=== PATIENT | female | born 1940 | race Caucasian/White ===

== ENCOUNTER → 2019-10-24 | Outpatient (CLI) | payer MEDICARE, BC | LOC: M.RAD 15:32 | DX: J98.4 Other disorders of lung (principal); I10 Essential (primary) hypertension; F32.9 Major depressive disorder, single episode, unspecified; F32.1 Major depressive disorder, single episode, moderate ==

== ENCOUNTER → 2019-11-03 | Outpatient (CLI) | payer MEDICARE, BC | LOC: M.MRI 10-31 14:02 | DX: I67.82 Cerebral ischemia (principal); F32.9 Major depressive disorder, single episode, unspecified; N30.00 Acute cystitis without hematuria; R26.9 Unspecified abnormalities of gait and mobility; I10 Essential (primary) hypertension; E04.1 Nontoxic single thyroid nodule; J98.4 Other disorders of lung ==

== ENCOUNTER → 2019-11-21 | Outpatient (CLI) | payer MEDICARE, BC | LOC: M.RAD 15:04 | PROVIDERS: ATTEND Internal Medicine | DX: M79.89 Other specified soft tissue disorders (principal); M25.572 Pain in left ankle and joints of left foot ==

== ENCOUNTER 2020-10-11 14:03 | Inpatient (IN) | payer MEDICARE, BC ==
[~2020-10-11] VITALS: Ht 167.6 cm; Wt 69.4 kg
--- NOTE | ~2020-10-11 | EMS ---
[address] [address] EMS Patient Care Report Name: WILBUR KHOURY Room: [address] [place]#: [id number] Admission: 10/11/20 Attend Phys: Dom Peters Discharge: Date of : 40 Report #: [id number] THIS REPORT FOR: //name// Report Transmitted: 10/11/2020 17:03 EMS Care Summary [place] Incident [id number] @ 10/11/2020 13:16 Incident Location [address] [place] [address] Patient WILBUR KHOURY Female, 79 Years 1940 Patient Address [address] [place] [address] Patient History Personal history of peptic ulcer disease,Hypertension (HTN), Patient Allergies , Patient Medications Tylenol, Acetaminophen / Oxycodone, Chief Complaint Abdominal pain/discomfort Disposition Transported No Lights/[place] Reason Unknown Problem/Person Down Transported To [facility] Narrative [facility] was dispatched to the aforementioned address for a reported pt with abdominal pain. Upon arrival, the pt was walking down the stairs under her own power with members from the [employer] ([employer]). The pt walked out to the cot where she was secured utilizing the cot seatbelts. The cot was [place] [id number] EMS Patient Care Report Name: WILBUR KHOURY Room: [address] BenitoRadha#: [id number] Admission: 10/11/20 Attend Phys: Dom Peters Discharge: Date of : 40 Report #: [id number] loaded into the unit without incident. [employer] and the pt's home health care worker relayed that the pt had "not been feeling well" for going on 5 days. The Pt reported she had not been able to eat or drink for 5 days and that she had not moved her bowels for 2 days. The pt stated she had all over abdominal pain rated 9 on a scale from 0-10. The pt stated the pain is constant and she cannot find relief. The pt denies worsening of pain to palpation. The pt also denies radiation of pain. While in the unit, the pt's history, vitals, and 4 and 12-Lead EKGs were obtained as recorded above. IV access was attempted but was unsuccessful. Oral Zofran was administered as recorded above. The pt denied relief with the medication. The pt's signature was obtained on paper indicating consent for transport, please see attached. The pt was transported non-emergency to [facility] Emergency Department Room 6. Pt care and belongings were transferred to [facility] staff. The pt was transferred from the cot to the hospital bed utilizing the blanket that was already beneath her, all these things occurring without incident. The pt's black bag and two patterned brown bags were left on the counter in the room. The pt's information sheet was placed in the center compartment of the black bag. The pt's blue cane was left leaning on the chair next to the bed. [facility] in-service and available at the time stated above. RMontes Initial Vitals @13:53Pain: 02/22, @13:25Pain: 02/22, @13:29SpO2: 97, @13:30SpO2: 98, @13:30SpO2: 97, @13:45SpO2: 99, @13:31 @13:32 @13:33 @13:29P: 112,R: 16, @13:30P: 111,R: 16,BP: 169/98, @13:45P: 102,R: 16,BP: 160/92, @13:29GCS: 15, @13:30GCS: 15, @13:45GCS: 15, @13:41Glucose: 140, Assessments @13:25MENTAL:SKIN:HEENT:LUNG SOUNDS:ABDOMEN:PELVIS//GI:EXTREMITIES:PULSE:NEURO: Impression [place] [address] EMS Patient Care Report Name: WILBUR KHOURY Room: [address] Juan R Verdin#: [id number] Admission: 10/11/20 Attend Phys: Dom Peters Discharge: Date of : 40 Report #: [id number] @13:40Ondansetron - 8.000 Milligrams (mg) - OralResponse: Unchanged@13:38 cc () Site: Forearm-RightResponse: UnchangedFailed@13:3112-Lead ECGResponse: UnchangedSucceeded@13:323-Lead ECGResponse: UnchangedSucceeded@13:3312-Lead ECGResponse: UnchangedSucceeded Timeline 13:16,Call Received 13:16,Dispatch Notified 13:16,Psap Call 13:16,Dispatched 13:17,En Route 13:23,On Scene 13:25,At Patient 13:25,BP: / M,PULSE: ,RR: R,SPO2: Ox,ETCO2: ,BG: ,PAIN: 9,GCS: , 13:29,BP: / M,PULSE: ,RR: R,SPO2: 97 Ox,ETCO2: ,BG: ,PAIN: ,GCS: , 13:29,BP: / M,PULSE: 112,RR: 16 R,SPO2: Ox,ETCO2: ,BG: ,PAIN: ,GCS: , 13:29,BP: / M,PULSE: ,RR: R,SPO2: Ox,ETCO2: ,BG: ,PAIN: ,GCS: 15, 13:30,BP: / M,PULSE: ,RR: R,SPO2: 98 Ox,ETCO2: ,BG: ,PAIN: ,GCS: , 13:30,BP: / M,PULSE: ,RR: R,SPO2: 97 Ox,ETCO2: ,BG: ,PAIN: ,GCS: , 13:30,BP: 169/98 M,PULSE: 111,RR: 16 R,SPO2: Ox,ETCO2: ,BG: ,PAIN: ,GCS: , 13:30,BP: / M,PULSE: ,RR: R,SPO2: Ox,ETCO2: ,BG: ,PAIN: ,GCS: 15, 13:31,12-Lead ECG,Response: UnchangedSucceeded, 13:31,BP: / M,PULSE: ,RR: R,SPO2: Ox,ETCO2: ,BG: ,PAIN: ,GCS: , 13:32,3-Lead ECG,Response: UnchangedSucceeded, 13:32,BP: / M,PULSE: ,RR: R,SPO2: Ox,ETCO2: ,BG: ,PAIN: ,GCS: , 13:33,12-Lead ECG,Response: UnchangedSucceeded, 13:33,BP: / M,PULSE: ,RR: R,SPO2: Ox,ETCO2: ,BG: ,PAIN: ,GCS: , 13:38, cc Site: Forearm-Right,Response: UnchangedFailed, 13:40,Ondansetron - 8.000 Milligrams (mg) - Oral,Response: Unchanged 13:41,BP: / M,PULSE: ,RR: R,SPO2: Ox,ETCO2: ,B,PAIN: ,GCS: , 13:43,Depart Scene 13:45,BP: / M,PULSE: ,RR: R,SPO2: 99 Ox,ETCO2: ,BG: ,PAIN: ,GCS: , 13:45,BP: 160/92 M,PULSE: 102,RR: 16 R,SPO2: Ox,ETCO2: ,BG: ,PAIN: ,GCS: , 13:45,BP: / M,PULSE: ,RR: R,SPO2: Ox,ETCO2: ,BG: ,PAIN: ,GCS: 15, 13:53,BP: / M,PULSE: ,RR: R,SPO2: Ox,ETCO2: ,BG: ,PAIN: 9,GCS: , 13:59,At Destination 14:15,Call Closed Disclaimer v1.1 Copyright 2020 [email or web address] This EMS Care Summary contains data elements from the applicable legal record (which may be displayed differently). It is designed to provide pertinent information for the following purposes: continuity of care, clinical quality, and state data reporting. The complete legal record is available to ED staff and administrators of the receiving hospital in [employer] Patient Tracker. All data is provided "as is."
[2020-10-11 14:14] VITALS: BP 160/83
[2020-10-11 14:40] LABS: ABSOLUTE BASOPHILS 0.1 thou/uL (0.0-0.2); ABSOLUTE LYMPHOCYTES 1.4 thou/uL (0.8-5.3); ABSOLUTE NEUTROPHILS 6.4 thou/uL (1.6-8.1); BASOPHILS 0.6 %; EOSINOPHILS 0.1 %; HEMATOCRIT 30.9 % (37.0-47.0); HEMOGLOBIN 9.8 gm/dL (12.0-15.0); LYMPHOCYTES 15.5 %; MCH 25.7 pg (26.0-34.0); MCHC 31.7 g/dL (28.0-37.0); MCV 81.2 fL (80.0-100.0); MONOCYTES 11.6 %; MPV 6.6 fl. (7.2-11.1); NUCLEATED RBCS 0 /100WBC; PLATELET COUNT* 533 thou/uL (150-400); POLYS 72.2 %; RBC 3.81 mil/uL (4.20-5.00); RDW-CV 20.7 % (10.5-14.5); WBC 8.8 thou/uL (4.0-11.0)
[2020-10-11 14:50] LABS: CALCIUM 9.7 mg/dL (8.5-10.1); CREATININE 0.7 mg/dL (0.6-1.3); POTASSIUM 3.5 mmol/L (3.5-5.1)
[2020-10-11 14:54] LABS: TOTAL BILIRUBIN 0.5 mg/dL (<0.1-1.0)
[2020-10-11 15:10] LABS: PLATELET ESTIMATE INCREASED
[2020-10-11 15:11] LABS: HYPOCHROMASIA 1+
[2020-10-11 15:14] LABS: ANISOCYTOSIS 1+
--- NOTE | 2020-10-11 15:52 | EKG ---
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
[2020-10-11 17:20] LABS: URINE BILIRUBIN NEGATIVE (Negative); URINE BLOOD NEGATIVE (Negative); URINE CLARITY CLEAR; URINE COLOR YELLOW; URINE GLUCOSE-RANDOM NEGATIVE (Negative); URINE KETONES 1+ (Negative); URINE LEUKOCYTES-REFLEX NEGATIVE (Negative); URINE NITRITE-REFLEX NEGATIVE (Negative); URINE PROTEIN NEGATIVE (Negative); URINE SPECIFIC GRAVITY <= 1.005 (1.005-1.030); URINE UROBILINOGEN 0.2 E.U./dl (0.2-1.0)
[2020-10-11 18:20] VITALS: BP 140/65
[2020-10-11 20:00] VITALS: BP 109/64
[2020-10-11] MEDS ORDERED: ENALAPRIL MALEA20 MG PO (22:55)
[2020-10-12] VITALS: BP 143/73
[2020-10-12 04:00] VITALS: BP 110/53
[2020-10-12 04:30] LABS: ABSOLUTE BASOPHILS 0.1 thou/uL (0.0-0.2); ABSOLUTE LYMPHOCYTES 1.3 thou/uL (0.8-5.3); ABSOLUTE MONOCYTES 0.6 thou/uL (0.0-1.2); ABSOLUTE NEUTROPHILS 3.8 thou/uL (1.6-8.1); EOSINOPHILS 0.3 %; HEMATOCRIT 25.4 % (37.0-47.0); HEMOGLOBIN 7.9 gm/dL (12.0-15.0); LYMPHOCYTES 22.3 %; MCH 25.5 pg (26.0-34.0); MCV 82.2 fL (80.0-100.0); MPV 6.9 fl. (7.2-11.1); NUCLEATED RBCS 0 /100WBC; POLYS 65.4 %; RBC 3.09 mil/uL (4.20-5.00); RDW-CV 20.1 % (10.5-14.5); WBC 5.8 thou/uL (4.0-11.0)
[2020-10-12 04:45] LABS: ALKALINE PHOSPHATASE 48 U/L (46-116); ANION GAP 10 mmol/L (7-16); BUN 7 mg/dL (7-18); CHLORIDE 104 mmol/L (98-107); CO2 24 mmol/L (21-32); CREATININE 0.7 mg/dL (0.6-1.3); GLUCOSE 87 mg/dL (70-99); POTASSIUM 3.2 mmol/L (3.5-5.1); SGOT 11 U/L (15-37); SGPT 11 U/L (30-65); SODIUM 138 mmol/L (136-145); TOTAL BILIRUBIN 0.3 mg/dL (<0.1-1.0); TOTAL PROTEIN 5.5 g/dL (6.4-8.2); TROPONIN-I LEVEL <0.06 ng/mL (<0.06)
[2020-10-12 04:48] LABS: PLATELET COUNT* 381 thou/uL (150-400)
[2020-10-12 07:57] VITALS: BP 153/76
[2020-10-12 08:21] LABS: HYPOCHROMASIA 3+; MICROCYTES 1+; PLATELET ESTIMATE ADEQUATE
[2020-10-12 08:22] LABS: ANISOCYTOSIS 1+
[2020-10-12 11:31] VITALS: BP 122/61
[2020-10-12 20:00] VITALS: BP 99/51
[2020-10-13 00:17] VITALS: BP 98/50
[2020-10-13 04:14] VITALS: BP 123/52
[2020-10-13 08:00] VITALS: BP 133/68
[2020-10-13 11:34] LABS: ABSOLUTE BASOPHILS 0.1 thou/uL (0.0-0.2); ABSOLUTE EOSINOPHILS 0.1 thou/uL (0.0-0.7); ABSOLUTE LYMPHOCYTES 0.8 thou/uL (0.8-5.3); ABSOLUTE MONOCYTES 0.5 thou/uL (0.0-1.2); ABSOLUTE NEUTROPHILS 3.4 thou/uL (1.6-8.1); BASOPHILS 1.2 %; EOSINOPHILS 2.3 %; HEMATOCRIT 24.1 % (37.0-47.0); HEMOGLOBIN 7.1 gm/dL (12.0-15.0); MCH 25.3 pg (26.0-34.0); MCHC 29.4 g/dL (28.0-37.0); MCV 86.1 fL (80.0-100.0); MONOCYTES 9.9 %; MPV 6.8 fl. (7.2-11.1); NUCLEATED RBCS 0 /100WBC; PLATELET COUNT* 356 thou/uL (150-400); POLYS 70.6 %; RDW-CV 21.2 % (10.5-14.5); WBC 4.8 thou/uL (4.0-11.0)
[2020-10-13 11:45] LABS: MAGNESIUM 1.9 mg/dL (1.8-2.4); PHOSPHORUS* 2.7 mg/dL (2.5-4.9)
[2020-10-13 11:56] LABS: CALCIUM 8.2 mg/dL (8.5-10.1); CREATININE 0.8 mg/dL (0.6-1.3); POTASSIUM 3.7 mmol/L (3.5-5.1)
[2020-10-13 12:00] VITALS: BP 127/62
[2020-10-13 16:02] VITALS: BP 197/42
[2020-10-13 17:22] VITALS: BP 128/51
[2020-10-14 00:21] VITALS: BP 106/43
[2020-10-14 04:54] VITALS: BP 127/49
[2020-10-14 08:00] VITALS: BP 135/58
[2020-10-14] MEDS ORDERED: GABAPENTIN 100100 MG PO (09:55)
[2020-10-14] MEDS ORDERED: CARAFATE 1 GM TA1 G1 PO (09:55)
[2020-10-14] MEDS ORDERED: ONDANSETRON HCL4 M2 PO (09:55)
[2020-10-14] MEDS ORDERED: PROTONIX40 M2 PO (09:55)
[2020-10-14 12:00] VITALS: BP 114/60
[2020-10-14 12:59] VITALS: BP 135/58
[2020-10-14 13:35] LABS: ABSOLUTE EOSINOPHILS 0.2 thou/uL (0.0-0.7); ABSOLUTE LYMPHOCYTES 0.9 thou/uL (0.8-5.3); ABSOLUTE MONOCYTES 0.6 thou/uL (0.0-1.2); ABSOLUTE NEUTROPHILS 3.9 thou/uL (1.6-8.1); BASOPHILS 0.7 %; EOSINOPHILS 3.6 %; HEMATOCRIT 25.2 % (37.0-47.0); HEMOGLOBIN 7.8 gm/dL (12.0-15.0); LYMPHOCYTES 15.9 %; MCH 25.4 pg (26.0-34.0); MCV 81.8 fL (80.0-100.0); MONOCYTES 10.5 %; MPV 7.3 fl. (7.2-11.1); NUCLEATED RBCS 0 /100WBC; POLYS 69.3 %; RBC 3.08 mil/uL (4.20-5.00); RDW-CV 20.8 % (10.5-14.5); WBC 5.6 thou/uL (4.0-11.0)
[2020-10-14 13:39] LABS: PLATELET COUNT* 250 thou/uL (150-400)
[2020-10-14 13:55] LABS: ALBUMIN 2.9 g/dL (3.4-5.0); CALCIUM 8.7 mg/dL (8.5-10.1); CREATININE 0.6 mg/dL (0.6-1.3); POTASSIUM 3.9 mmol/L (3.5-5.1); TOTAL BILIRUBIN 0.2 mg/dL (<0.1-1.0); TOTAL PROTEIN 5.4 g/dL (6.4-8.2)
[2020-10-14 14:09] LABS: HYPOCHROMASIA 3+; PLATELET ESTIMATE ADEQUATE
[2020-10-14 14:10] LABS: MACROCYTES Occasional
[2020-10-14 14:11] LABS: ANISOCYTOSIS Occasional; MICROCYTES Occasional
--- NOTE | 2020-10-15 07:32 | CON ---
[address] [address] CONSULTATION Name: WILBUR KHOURY Room: [address] IN M.R.#: [id number] Admission: 10/12/20 Attend Phys: Dom Peters Discharge: 10/14/20 Date of : 40 Report #: [id number] THIS REPORT FOR: cc: Nils Remy MD, David L. MD Bodenstab, Johnna L. FNP ~ DOC #: [id number] cc: MD Evonne Morley FNP DATE OF CONSULTATION: 10/12/2020 PRIMARY CARE PHYSICIAN: Nils Remy MD Please note at the time of this dictation, the patient was seen and physically examined by myself. REASON FOR CONSULTATION: Nausea, vomiting and abdominal pain. HISTORY OF PRESENT ILLNESS: This 79-year-old female who is under the care of a caregiver that sees her on a daily basis. Apparently, the patient is a very poor historian, that she has complained of left-sided abdominal discomfort with some nausea and vomiting. She states eating makes it worse and she had not eaten for several days. She states that 3 weeks ago, she had some blood in her urine and that has since resolved. In talking with the patient, she is unclear if she had an EGD. She was in [facility] she states back in May for a bleeding ulcer, likely she had an upper scope done. We will need ____ to get those records from her. Apparently, her appetite has been off and on and she has been having bowel movements regularly. No noted weight loss has been noted. The patient does complain at the time at the bedside that she has a lot of anxiety and was wanting something for that. Attempt was made to talk to, Dayanna, the granddaughter, to see if she knew what type of care she received at [facility] and that we will just have to wait on records. Left a message for her to call us back. Apparently, the patient had an extensive workup at [place] as well 4 years ago that showed that she had ulcers, otherwise no other reason for her symptoms. It is also noted from the granddaughter that she has had suicide attempts via benzo overdose in the past. ALLERGIES: SULFA, CODEINE. MEDICATIONS FROM HOME: Gabapentin, ferrous sulfate, oxycodone, pantoprazole, and enalapril. PAST MEDICAL HISTORY: Significant for anxiety, peptic ulcer disease, hypertension and possible [place] [address] CONSULTATION Name: WILBUR KHOURY Room: [address] IN M.R.#: [id number] Admission: 10/12/20 Attend Phys: Dom Peters Discharge: 10/14/20 Date of : 40 Report #: [id number] PAST SURGICAL HISTORY: She has had bilateral breast implants. FAMILY HISTORY: Noncontributory. SOCIAL HISTORY: Denies any alcohol, tobacco, or illegal drug use. REVIEW OF SYSTEMS: Twelve point review of systems is essentially negative except what is mentioned in the HPI. PHYSICAL EXAMINATION: VITAL SIGNS: Temperature 36.4, pulse 66, respirations 17, blood pressure 110/53. HEART: Regular rate and rhythm. LUNGS: Diminished, but clear. ABDOMEN: Soft, positive bowel sounds in all four quadrants with tenderness noted more in the upper abdomen bilaterally. LABORATORY DATA: Hemoglobin on admission was 9.8, she is 7.9; white count is 5.8; platelets 381. Potassium was 3.2, BUN was normal at 12 with a GFR of 81. DIAGNOSTIC DATA: CT scan of the abdomen and pelvis shows mild fatty liver, gallbladder and spleen are normal, mildly dilated duodenum along the first and second portions with mucosal enhancement. There is also edema and mild fluid along the margins near the pancreatic head. There is luminal narrowing at the junction of the duodenal bulb and pylorus. No pancreatic inflammation is seen. Small hiatal hernia. IMPRESSION: 1. Abdominal pain. 2. Nausea and vomiting. 3. Abnormal CT with dilated duodenum and narrowing in the luminal wall. 4. History of peptic ulcer disease and nonsteroidal anti-inflammatory drug use in the past, no longer doing that. 5. Anemia. She states history of a melanotic stool in the remote past. 6. Anxiety. 7. History of suicide attempts. PLAN: 1. Obtain records from [facility]. 2. The patient is refusing EGD this a.m. 3. Clear liquid diet. 4. Called to speak with granddaughter, Dayanna, but had to leave a message to call back and instructed to talk to Iris. [address] [address] CONSULTATION Name: WILBUR KHOURY Room: M.218-P DIS IN M.R.#: [id number] Admission: 10/12/20 Attend Phys: Dom Peters Discharge: 10/14/20 Date of : 40 Report #: [id number] 5. Further recommendations to be made once the above has been noted. Thank you for allowing us to participate in this patient's care. Please do not hesitate to call with any questions regarding this consult. MD MAE Rees/ERROL <ELECTRONICALLY SIGNED> By: GREGORY Carranza 10/15/20 0732 0757 2120GREGORY Carranza /shaniqua
== END 2020-10-14 15:47 | disposition home or self-care (01) | DRG 380 ==
LOC: M.ERS 14:03 → M.TBA-ER 16:09 → M.2W 18:21
PROVIDERS: Emergency Medicine Emergency Medical Services; ADMIT Internal Medicine; ATTEND Internal Medicine
DX: K31.1 Adult hypertrophic pyloric stenosis (principal); G93.41 Metabolic encephalopathy; E44.1 Mild protein-calorie malnutrition; F41.9 Anxiety disorder, unspecified; I10 Essential (primary) hypertension; K52.9 Noninfective gastroenteritis and colitis, unspecified; D47.3 Essential (hemorrhagic) thrombocythemia; D64.9 Anemia, unspecified; F03.90 Unspecified dementia, unspecified severity, without behavioral disturbance, psychotic disturbance, mood disturbance, and anxiety; Z20.822 Contact with and (suspected) exposure to COVID-19; Z88.2 Allergy status to sulfonamides; Z68.24 Body mass index [BMI] 24.0-24.9, adult; Z88.5 Allergy status to narcotic agent; Z87.11 Personal history of peptic ulcer disease; Z86.73 Personal history of transient ischemic attack (TIA), and cerebral infarction without residual deficits; Z79.899 Other long term (current) drug therapy; Z82.3 Family history of stroke

== ENCOUNTER 2020-12-28 11:45 | Emergency (ER) | payer MEDICARE, BC ==
[~2020-12-28] VITALS: Ht 167.6 cm; Wt 63.5 kg
[~2020-12-28 11:45] MED LIST: CARAFATE 1 GM TA1 G1 PO; ENALAPRIL MALEA20 MG PO; GABAPENTIN 100100 MG PO; ONDANSETRON HCL4 M2 PO; PROTONIX40 M2 PO
[2020-12-28 12:22] LABS: ABSOLUTE BASOPHILS 0.1 thou/uL (0.0-0.2); ABSOLUTE EOSINOPHILS 0.1 thou/uL (0.0-0.7); ABSOLUTE LYMPHOCYTES 1.5 thou/uL (0.8-5.3); ABSOLUTE MONOCYTES 0.6 thou/uL (0.0-1.2); ABSOLUTE NEUTROPHILS 4.1 thou/uL (1.6-8.1); BASOPHILS 1.2 %; HEMATOCRIT 35.1 % (37.0-47.0); HEMOGLOBIN 11.2 gm/dL (12.0-15.0); LYMPHOCYTES 23.7 %; MCH 21.2 pg (26.0-34.0); MCV 66.1 fL (80.0-100.0); MONOCYTES 9.9 %; MPV 6.8 fl. (7.2-11.1); NUCLEATED RBCS 0 /100WBC; PLATELET COUNT* 486 thou/uL (150-400); POLYS 64.2 %; WBC 6.4 thou/uL (4.0-11.0)
[2020-12-28 12:34] LABS: CALCIUM 9.3 mg/dL (8.5-10.1); CREATININE 0.6 mg/dL (0.6-1.3)
[2020-12-28 12:38] LABS: ALBUMIN 4.1 g/dL (3.4-5.0); TOTAL BILIRUBIN 0.4 mg/dL (<0.1-1.0); TOTAL PROTEIN 7.5 g/dL (6.4-8.2)
[2020-12-28 13:14] LABS: HYPOCHROMASIA 3+; PLATELET ESTIMATE INCREASED
[2020-12-28 13:15] LABS: ANISOCYTOSIS 2+; MICROCYTES 2+
[2020-12-28 14:45] VITALS: BP 145/103
--- NOTE | 2020-12-28 15:48 | EKG ---
[place] [address] ELECTROCARDIOGRAM REPORT Name: WILBUR KHOURY Room: [facility]#: [id number] Admission: 12/28/20 Attend Phys: Discharge: 12/28/20 Date of : 40 Date of Service: 12/28/20 1156 Report #: [id number] THIS REPORT FOR: //name// [facility] ED Test Date: 2020-12-28 Test Time: 11:56:46 Pat Name: WILBUR KHOURY Department: Room: Gender: Manager Gaming: : 1940 Requested By: Rex Barrientos Order Number: [id number] MD: Andres Fan Measurements Intervals [place] Rate: 93 P: 53 VA: 128 QRS: -45 QRSD: 148 T: 109 QT: 418 QTc: 520 Interpretive Statements Sinus rhythm Probable left atrial enlargement Left bundle branch block Baseline wander in lead(s) II,III,aVR,aVL,aVF,V1,V2,V3,V4,V5,V6 Compared to ECG 10/11/2020 14:37:37 No significant changes Electronically Signed On 12-28-2020 15:48:35 CDT by Andres Fan [email or web address] <ELECTRONICALLY SIGNED> By: Andres Fan MD, [facility] 12/28/20 1548 1156 1156 Andres Fan MD, [facility] /EPI
== END 2020-12-28 14:45 | disposition home or self-care (01) ==
LOC: M.ERS 11:45
PROVIDERS: Family Medicine
DX: G89.29 Other chronic pain (principal); Z20.822 Contact with and (suspected) exposure to COVID-19; R10.12 Left upper quadrant pain; I10 Essential (primary) hypertension; Z88.2 Allergy status to sulfonamides; Z88.5 Allergy status to narcotic agent; Z79.899 Other long term (current) drug therapy